=== PATIENT | male | born 1965 | race Caucasian/White ===

== ENCOUNTER 2018-07-13 12:24 | Emergency (ER) | payer BC ==
--- NOTE | 2018-07-13 13:21 | EDPHY ---
H & P Stated Complaint: low back pain Time Seen by Provider: 07/13/18 13:01 HPI/ROS: CHIEF COMPLAINT: Acute low back pain HISTORY OF PRESENT ILLNESS: 52-year-old male visiting from [place] arrives via private vehicle complaining of acute low back pain. He describes playing golf a few days ago and was asymptomatic. Later on that evening he developed sudden onset spasm like lumbar back pain when he was bent over doing dishes in a low sink. He describes mild paresthesia to his right buttock only. No footdrop. No incontinence. No retention. No direct trauma or fall. He does note prior history of similar with no history of imaging studies. PRIMARY CARE PROVIDER: In [place] REVIEW OF SYSTEMS: A ten point review of systems was performed and is negative with the exception of the items mentioned in the HPI PAST MEDICAL & SURGICAL HISTORY: No pertinent medical or surgical history SOCIAL HISTORY: Nonsmoker. . Visiting [place]. No history of IV drug abuse. PHYSICAL EXAM (Prior to examination, patient consented to physical exam, hands were washed and my usual and customary physical exam procedures followed) 1) GENERAL: Well-developed, well-nourished, alert and oriented. Appears to be in no acute distress. Does appear uncomfortable when he is asked to move. 2) HEAD: Normocephalic, atraumatic 3) HEENT: Pupils equal, round, reactive to light bilaterally. Sclera anicteric. Nasopharynx, oropharynx, clear, no lesions. 4) NECK: Full range of motion, no meningeal signs. 5) LUNGS: Clear auscultation bilaterally, no wheezes, no rhonchi, no retractions. 6) HEART: Regular rate and rhythm, no murmur, no heave, no gallop. 7) ABDOMEN: No guarding, no rebound, no focal tenderness, negative McBurney's, negative Moore's, negative Rovsing's, negative peritoneal sign, 8) MUSCULOSKELETAL: Moving all extremities, no focal areas of tenderness, no obvious trauma. No peripheral edema or discoloration. 9) BACK: tender to palpation paraspinous muscle. No CVA tenderness, no midline vertebral tenderness, no fluctuance, no step-off, no obvious trauma, no visual or palpable abnormality. Patella, Achilles reflexes intact to bilateral strength 5/5 10) SKIN: No rash, no petechiae. 11) NEURO: Awake, alert, and oriented to person, place and time. Answers questions appropriately. There were no obvious focal neurologic abnormalities. No cerebellar dysfunction. Normal steady gait. Upper and lower extremities bilaterally with strength 5 / 5, reflexes 2+.. DIFFERENTIAL DIAGNOSIS: In no particular order, including but not limited to, fracture, sprain/strain, cauda equina, spinal infectious etiology. MEDICAL DECISION MAKING I evaluated this patient. He is complaining of mild new paresthesia to his right buttock. I recommended MRI of his lumbar spine. He declines this stating that he would prefer to have this done at his hometown in [place]. I have warned him of the risks of declining this including, but not limited to, Lower index of suspicion for cauda equina, epidural abscess, epidural hematoma, lumbar myositis, diskitis, as the patient is neurologically intact in the lower extremities, has patella and Achilles reflexes intact and equal bilaterally, has no neurologic deficits, no incontinence, no retention, no midline pain, no fluctuance, afebrile, no flulike symptoms. Pain may be secondary to muscular strain, may be secondary to discogenic etiology. Usual and customary warnings were given concerning the clinical impression and all the patient's questions were answered. The patient was instructed to return to the emergency department should her symptoms worsen or return, or develop any new symptoms, otherwise to followup as directed in discharge instructions. Care of patient under supervision of primary Supervising physician Dr Javon Martin. - Personal History Current Tetanus/Diphtheria Vaccine: No Current Tetanus Diphtheria and Acellular Pertussis (TDAP): No - Medical/Surgical History Hx Asthma: No Hx Chronic Respiratory Disease: No Hx Diabetes: No Hx Cardiac Disease: No Hx Renal Disease: No Hx Cirrhosis: No Hx Alcoholism: No Hx HIV/AIDS: No Hx Splenectomy or Spleen Trauma: No Other PMH: HTN, - Social History Smoking Status: Never smoked Constitutional: Initial Vital Signs Temperature (C) 36.7 C 07/13/18 12:36 Heart Rate 76 07/13/18 12:36 Respiratory Rate 16 07/13/18 12:36 Blood Pressure 160/88 H 07/13/18 12:36 O2 Sat (%) 96 07/13/18 12:36 O2 Delivery Mode Room Air Allergies/Adverse Reactions: No Known Allergies Allergy (Unverified 07/13/18 12:35) Home Medications: Medication Instructions Recorded Rachel Allergy 07/13/18 Cyclobenzaprine [Flexeril 10 MG 10 mg PO TID #15 tab 07/13/18 (RX)] Fish Oil 1,000 mg Softgel 07/13/18 Lisinopril 07/13/18 Omeprazole 07/13/18 Vitamin C 07/13/18 Vitamin D3 07/13/18 methylPREDNISolone [Medrol Dose 4 mg PO DAILY #1 ea 07/13/18 [facility]] Departure - Departure Disposition: Home, Routine, Self-Care Clinical Impression: Acute low back pain Condition: Good Instructions: Low Back Strain (ED) Additional Instructions: Seek medical attention if you develop new or worsening pain, if you develop bladder or bowel dysfunction, numbness around your perineum, foot drop, or any other symptoms that concern you. Referrals: [facility] [Other] - 2-3 days, call for appt. Prescriptions: Cyclobenzaprine [Flexeril 10 MG (RX)] 10 mg PO TID #15 tab methylPREDNISolone [Medrol Dose [facility]] 4 mg PO DAILY #1 ea
[2018-07-13 13:54] VITALS: BP 155/87
== END 2018-07-13 13:51 | disposition home or self-care (01) ==
DX: M54.5 Low back pain (principal); I10 Essential (primary) hypertension